=== PATIENT | female | born 1955 | race Hispanic/Latino ===

== ENCOUNTER 2020-07-09 16:11 | Emergency (ER) | payer BC, OTHER ==
[~2020-07-09] VITALS: Ht 157.5 cm; Wt 72.6 kg
[~2020-07-09 16:11] MED LIST: DICLOFENAC SODI75 MG PO
== END 2020-07-09 17:58 | disposition home or self-care (01) ==
LOC: ER 16:50
DX: U07.1 COVID-19 (principal); R06.02 Shortness of breath; R05 Cough; R07.89 Other chest pain; I10 Essential (primary) hypertension
CPT/HCPCS: 99283

== ENCOUNTER 2020-07-19 12:01 | Emergency (ER) | payer OTHER ==
[~2020-07-19] VITALS: Ht 157.5 cm; Wt 72.6 kg
[2020-07-19] MEDS ORDERED: ALBUTEROL0.63 MG/3 NEB (12:28)
[2020-07-19] MEDS ORDERED: TYLENOL # 31 EA PO (12:28)
== END 2020-07-19 12:45 | disposition home or self-care (01) ==
LOC: ER 12:28
DX: U07.1 COVID-19 (principal); R05 Cough; I10 Essential (primary) hypertension
CPT/HCPCS: 99283

== ENCOUNTER → 2021-08-12 | Outpatient (CLI) | payer MEDICARE ==
[~2021-08-12] MED LIST changes: +ALBUTEROL0.63 MG/3 NEB; +TYLENOL # 31 EA PO
== END ==
LOC: RAD 11:56
PROVIDERS: ATTEND Nurse Practitioner Gerontology
DX: M25.511 Pain in right shoulder (principal)